=== PATIENT | female | born 1985 | race Caucasian/White ===

== ENCOUNTER 2017-01-03 09:28 | Emergency (ER) | payer OTHER ==
[2017-01-03] MEDS ORDERED: DIAZEPAM 5 MG TABLET ONE (09:59)
[2017-01-03] MEDS ORDERED: IBUPROFEN 600 MG TABLET ONE (09:59)
[2017-01-03] MEDS ORDERED: ACETAMINOPHEN 325 MG TABLET ONE (09:59)
== END 2017-01-03 10:13 | disposition home or self-care (01) ==
LOC: ED 09:28
DX: M54.5 Low back pain (principal); F17.210 Nicotine dependence, cigarettes, uncomplicated; V43.52XA Car driver injured in collision with other type car in traffic accident, initial encounter; Y92.410 Unspecified street and highway as the place of occurrence of the external cause
CPT/HCPCS: 99283 ×2; A9270 ×3